=== PATIENT | female | born 1965 | race Caucasian/White ===

== ENCOUNTER 2018-05-06 16:52 | Outpatient (REF) | payer OTHER, SELFPAY ==
--- NOTE | 2018-05-06 15:15 | PAPFT_PTH ---
PATIENT: WENDY GALLAGHER LOC: [facility] U#:[id number] AGE/SX: 52/F ROOM: RE05/06/[address]: Renetta Pollack : 1965 BED: DIS: 05/06/2018 SPEC #: [id number] RECD: 05/07/18 13:13 STATUS: JIM REQ #: [id number] MELITON: 05/06/18 15:[address]: Renetta Pollack [facility] Cytology RECD BY: Mirtha Power Tissues: 1 - CX/ENDOCX FOR PAP SMEARS Procedures: PAP THIN PREP/[facility] Screening HPV DNA PROBE Comments: [id number]
== END 2018-05-06 17:12 ==
LOC: NCHCN 16:52
PROVIDERS: PCP Family Medicine; Referring Provider Family Medicine; Visit Provider Family Medicine
DX: Z12.4 Encounter for screening for malignant neoplasm of cervix (principal); Z11.51 Encounter for screening for human papillomavirus (HPV)
CPT/HCPCS: 88142; 87624

== ENCOUNTER 2018-06-03 01:22 | Outpatient (CLI) | payer OTHER, SELFPAY ==
--- NOTE | 2018-06-03 12:33 | DI.MAMMO_ITS ---
SYMPTOMS/DIAGNOSIS: SCREENING, Z12.39 BILATERAL SCREENING MAMMOGRAM: Mammograms were interpreted according to the usual protocol including computer analysis with CAD system, tomosynthesis and C view imaging. Comparison is made with exams from 2012 and 2016. There are bilateral saline implants. The implants appear intact. Implant-displaced views were performed in addition to the routine views. The breasts are composed of heterogeneously dense fibroglandular tissue, breast density category C. No suspicious masses or suspicious microcalcifications are seen. There has been no significant change. IMPRESSION: Category 1C, negative mammogram. Yearly screening mammography is recommended. [facility] ASSESSMENT OF FINDINGS: Negative. Category 1. Patient will receive a letter notifying them of these results. Bi-RADS category C. The breasts are heterogeneously dense, which may obscure small masses.
== END 2018-06-03 01:42 ==
PROVIDERS: PCP Family Medicine; Visit Provider Family Medicine
DX: Z12.31 Encounter for screening mammogram for malignant neoplasm of breast (principal); Z98.82 Breast implant status
CPT/HCPCS: 77063; 77067

== ENCOUNTER 2019-05-12 20:13 | Outpatient (REF) | payer OTHER, SELFPAY ==
[2019-05-12 20:26] LABS: Albumin 3.6 g/dL (3.4-5.0); BUN 13 mg/dL (7-18); CREATININE 0.84 mg/dL (0.55-1.02); Calcium 8.6 mg/dL (8.5-10.1); Chloride 104 mmol/L (98-107); Glucose 88 mg/dL (70-100); Potassium 3.9 mmol/L (3.5-5.1); Sodium 141 mmol/L (136-145)
== END 2019-05-12 20:33 ==
LOC: NCHCN 20:13
PROVIDERS: PCP Family Medicine; Visit Provider Family Medicine
DX: R25.2 Cramp and spasm (principal)
CPT/HCPCS: 80048; 82040; 83735